=== PATIENT | male | born 1975 | race Caucasian/White ===

== ENCOUNTER 2017-09-26 12:37 | Emergency (ER) | payer BC ==
[2017-09-26] MEDS ORDERED: TOPICAL SKIN ADHESIVE 1 EACH AMP TOPICAL ONE (12:57)
[2017-09-26] MEDS ORDERED: DIPH,PERTUS(ACELL)TETVAC-LF 0.5 ML VIAL IM ONE (12:57)
--- NOTE | 2017-09-26 13:10 | ED ---
Wound/Laceration HPI - General Chief Complaint: Wound/Laceration Stated Complaint: Thumb Lac Time Seen by Provider: 09/26/17 12:52 Source: patient, RN notes reviewed Mode of arrival: ambulatory Limitations: no limitations - History of Present Illness Initial Comments: This is a 42-year-old male who presents to the emergency department with chief complaint of left thumb laceration. Patient states that 40 minutes prior to arrival he was hunting in [place]. He was skinning a deer when he slipped and lacerated his left thumb. Patient believes he is not up-to-date with his tetanus vaccination. He states the knife was clean at the time that the wound was made. States he is able to fully move his left thumb and has intact sensation. Denies fever, chills, chest pain, shortness of breath, abdominal pain , nausea or vomiting, constipation or diarrhea, dysuria or hematuria, numbness or tingling, headache or vision changes. - Related Data Allergies Allergy/AdvReac Type Severity Reaction Status Date / Time No Known Allergies Allergy Verified 09/26/17 13:26 Review of Systems ROS Statement: Those systems with pertinent positive or pertinent negative responses have been documented in the HPI. ROS Other: All systems not noted in ROS Statement are negative. General Exam - General Exam Comments Initial Comments: General: Awake and alert, well-developed; in no apparent distress. HEENT: Head atraumatic, normocephalic. Pupils are equal, round and reactive to light. Extraocular movements intact. Oropharynx moist without erythema or exudate. Neck: Supple. Normal ROM. Cardiovascular: Regular rate and rhythm. No murmurs, rubs or gallops. Chest symmetrical. Respiratory: Lungs clear to auscultation bilaterally. No wheezes, rales or rhonchi. Normal respiratory effort with no use of accessory muscles. Musculoskeletal: Full active and passive range of motion of left thumb. Sensation is intact. Radial pulses are 2+ equal and palpable bilaterally. Skin: [place], warm and dry without rashes. Approximately 1.0 cm superficial, linear laceration at distal tip of left thumb. Edges are well approximated. Bleeding is controlled. Neurological: Alert and oriented x3. CN II-XII grossly intact. Speech is fluent and answers are appropriate. No focal neuro deficits. Psychiatric: Normal mood and affect. No overt signs of depression or anxiety noted. Procedures - Laceration Laceration #1 Consent Obtained: verbal consent ( ) Indication: laceration Site: hand (distal tip left thumb ) Size (cm): 1 Description: linear Depth: simple, single layer Pre-repair: wound explored, irrigated extensively, deep structures intact Type of Sutures: other (Steri-strips (4) ) Patient Tolerated Procedure: well, no complications Medical Decision Making - Medical Decision Making this is a 42-year-old male who presents to the emergency department with chief complaint of left thumb laceration. Wound was cleansed and bleeding is controlled. 4 steristrips were applied and patient tolerated well without complication. Neurovascularly intact. Patient will be discharged home. Tetanus vaccination was made up-to-date while in the emergency department. Advised patient to allow Steri-Strips to fall off on their own within the next few days. He is in agreement and voices understanding. All questions were answered. Disposition Clinical Impression: Finger laceration Disposition: HOME SELF-CARE Condition: Good Instructions: Finger Laceration (ED) Additional Instructions: Please follow up with primary care provider within 1-2 days. Return to emergency department if symptoms should worsen or any concerns arise. Referrals: None,Stated [Primary Care Provider] - 1-2 days Time of Disposition: 13:29
[2017-09-26 13:38] VITALS: BP 136/79; PULSE 71; RESP 18; TEMP 97.1
== END 2017-09-26 13:42 | disposition home or self-care (01) ==
LOC: EC 12:37
DX: S61.012A Laceration without foreign body of left thumb without damage to nail, initial encounter (principal); Z23 Encounter for immunization; W26.0XXA Contact with knife, initial encounter; Y93.89 Activity, other specified
CPT/HCPCS: 90471; 90715; 99282

== ENCOUNTER 2023-09-13 12:52 | Emergency (ER) | payer BC ==
[2023-09-13] MEDS ORDERED: DIPH,PERTUS(ACELL)TETVAC-LF 0.5 ML VIAL IM ONE (13:05)
[2023-09-13 13:19] VITALS: RESP 18; TEMP 98.5
[2023-09-13 13:58] LABS: Basophils % (A) 0 %; Eosinophils # (A) 0.3 k/uL (0-0.7); Eosinophils % (A) 4 %; HCT 42.1 % (39.0-53.0); HGB 14.4 gm/dL (13.0-17.5); Lymphocytes # (A) 1.6 k/uL (1.0-4.8); Lymphocytes % (A) 23 %; MCH 33.2 pg (25.0-35.0); MCHC 34.2 g/dL (31.0-37.0); Mean Platelet Volume 8.9; Monocytes # (A) 0.4 k/uL (0-1.0); Monocytes % (A) 5 %; Neutrophils # (A) 4.5 k/uL (1.3-7.7); Neutrophils % (A) 65 %; Platelet Count 286 k/uL (150-450); RBC 4.34 m/uL (4.30-5.90); RDW 12.1 % (11.5-15.5); WBC 6.9 k/uL (3.8-10.6)
[2023-09-13 14:06] LABS: ALT 28 U/L (4-49); AST 29 U/L (17-59); African American GFR (CKD) >90 (>60 ml/min/1.73 sqM); Albumin 3.9 g/dL (3.5-5.0); Alkaline Phosphatase 65 U/L (38-126); Anion Gap 11 mmol/L; Blood Urea Nitrogen 16 mg/dL (9-20); Carbon Dioxide 21 mmol/L (22-30); Chloride 108 mmol/L (98-107); Creatine Kinase 198 U/L (55-170); Glucose 82 mg/dL (74-99); Non-African American GFR(CKD) >90 (>60 ml/min/1.73 sqM); Potassium 3.9 mmol/L (3.5-5.1); Sodium 140 mmol/L (137-145); Total Bilirubin 0.9 mg/dL (0.2-1.3); Total Protein 6.3 g/dL (6.3-8.2)
--- NOTE | 2023-09-13 14:09 | ED ---
Wound/Laceration HPI - General Chief Complaint: Wound/Laceration Stated Complaint: L Wrist Lac Time Seen by Provider: 09/13/23 12:52 Source: patient, RN notes reviewed Mode of arrival: ambulatory Limitations: no limitations - History of Present Illness Initial Comments: 40-year-old male was brought in by EMS because of a laceration to his left wrist area he was [place] and did lacerate with a puncture wound the lateral aspect of his left wrist he states the blood spurted out for several minutes he did hold pressure. EMS was summoned I did apply a dressing. Reports of some localized edema to the area other injury reported no fevers chills nausea vomiting sweats discomfort to the area and the feeling of swelling per the patient. His last tetanus shot was over 10 years ago. - Related Data Allergies Allergy/AdvReac Type Severity Reaction Status Date / Time No Known Allergies Allergy Verified 09/13/23 13:07 Review of Systems ROS Statement: Those systems with pertinent positive or pertinent negative responses have been documented in the HPI. ROS Other: All systems not noted in ROS Statement are negative. 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 Absent: scleral icterus, conjunctival injection, periorbital swelling ENT exam: Present: normal exam, mucous membranes moist Neck exam: Present: normal inspection. Absent: tenderness, meningismus, lymphadenopathy Respiratory exam: Present: normal lung sounds bilaterally. Absent: respiratory distress, wheezes, rales, rhonchi, stridor Cardiovascular Exam: Present: regular rate, normal rhythm, normal heart sounds. Absent: systolic murmur, diastolic murmur, rubs, gallop, clicks GI/Abdominal exam: Absent: distended, tenderness, guarding, rebound, rigid Extremities exam: Present: full ROM, tenderness (Examination of the left wrist demonstrates a proximally 3-4 mm linear laceration over the area of the radial artery. No active bleeding seen at this time there is local ice swelling but distally no evidence of any neurovascular deficits. The fingers and hand are pink warm and dry.), normal capillary refill. Absent: pedal edema, joint swelling, calf tenderness Back exam: Present: normal inspection Neurological exam: Present: alert, oriented X3, CN II-XII intact Psychiatric exam: Present: normal affect, normal mood Skin exam: Present: warm, dry, intact, normal color. Absent: rash Course Vital Signs 09/13/23 13:02 Temperature 98.5 F Pulse Rate 70 Respiratory 18 Rate Blood Pressure 128/85 O2 Sat by Pulse 99 Oximetry Medical Decision Making - Medical Decision Making I did discuss the findings with Dr. Starkey who did review the CT at this juncture no further workup is indicated. Patient did get tetanus. I did discuss the potential for infection.Was pt. sent in by a medical professional or institution (, PA, MENTAL HEALTH PROFESSIONAL, urgent care, hospital, or longterm...) When possible be specific @ -No Did you speak to anyone other than the patient for history (EMS, parent, family, police, friend...)? What history was obtained from this source @ -Paramedics upon arrival Did you review nursing and triage notes (agree or disagree)? Why? @ -I reviewed and agree with nursing and triage notes Were old charts reviewed (outside hosp., previous admission, EMS record, old EKG, old radiological studies, urgent care reports/EKG's, longterm records)? Report findings @ -No old charts were reviewed Differential Diagnosis (chest pain, altered mental status, abdominal pain women, abdominal pain men, vaginal bleeding, weakness, fever, dyspnea, syncope, headache, dizziness, GI bleed, back pain, seizure, CVA, palpatations, mental health, musculoskeletal)? @ -Puncture wound left wrist, radial artery injury EKG interpreted by me (3pts min.). @ -Done X-rays interpreted by me (1pt min.). @ -None done CT interpreted by me (1pt min.). @ -CT angiography the left upper extremity demonstrates no definitive evidence of arterial injury or extravasation no other findings. Was interpreted by me. U/S interpreted by me (1pt. min.). @ -None done What testing was considered but not performed or refused? (CT, X-rays, U/S, labs)? Why? @ -None What meds were considered but not given or refused? Why? @ -None Did you discuss the management of the patient with other professionals (professionals i.e. , PA, MENTAL HEALTH PROFESSIONAL, lab, RT, psych nurse, social sciences department chair, coffee break attendant, teacher, armored vehicle officer, geriatric case manager)? Give summary @ -After Starkey from vascular surgery no other treatment indicated at this time with respect to vascular surgery Was smoking cessation discussed for >3mins.? @ -No Was critical care preformed (if so, how long)? @ -No Were there social determinants of health that impacted care today? How? (Homelessness, low income, unemployed, alcoholism, drug addiction, transportation, low edu. Level, literacy, decrease access to med. care, senior living, rehab)? @ -No Was there de-escalation of care discussed even if they declined (Discuss DNR or withdrawal of care, Hospice)? DNR status @ -No What co-morbidities impacted this encounter? (DM, HTN, Smoking, COPD, CAD, Cancer, CVA, ARF, Chemo, Hep., AIDS, mental health diagnosis, sleep apnea, morbid obesity)? @ -None Was patient admitted / discharged? Hospital course, mention meds given and rout e, prescriptions, significant lab abnormalities, going to OR and other pertinent info. @ -hospital course and was discharged with outpatient follow-up we did discuss elevation and dressing for the next week. He did discuss potential for infectious process. This time no prophylaxis is indicated other than tetanus with the patient did receive. Undiagnosed new problem with uncertain prognosis? @ -No Drug Therapy requiring intensive monitoring for toxicity (Heparin, Nitro, Insulin, Cardizem)? @ -No Were any procedures done? @ -No Diagnosis/symptom? @ -Puncture wound left wrist. No repair indicated Acute, or Chronic, or Acute on Chronic? @ -Acute Uncomplicated (without systemic symptoms) or Complicated (systemic symptoms)? @ -Complicated Side effects of treatment? @ -No Exacerbation, Progression, or Severe Exacerbation? @ -No Poses a threat to life or bodily function? How? (Chest pain, [place], [place], pneumonia, PE, COPD, DKA, ARF, appy, cholecystitis, CVA, Diverticulitis, Homicidal, Suicidal, threat to staff... and all critical care pts) @ -No - Lab Data Result diagrams: 09/13/23 13:18 09/13/23 13:18 Lab Results 09/13/23 09/13/23 Range/Units 13:18 13:18 WBC 6.9 (3.8-10.6) k/uL RBC 4.34 (4.30-5.90) m/uL Hgb 14.4 (13.0-17.5) gm/dL Hct 42.1 (39.0-53.0) % MCV 97.0 (80.0-100.0) fL MCH 33.2 (25.0-35.0) pg MCHC 34.2 (31.0-37.0) g/dL RDW 12.1 (11.5-15.5) % Plt Count 286 (150-450) k/uL MPV 8.9 Neutrophils % 65 % Lymphocytes % 23 % Monocytes % 5 % Eosinophils % 4 % Basophils % 0 % Neutrophils # 4.5 (1.3-7.7) k/uL Lymphocytes # 1.6 (1.0-4.8) k/uL Monocytes # 0.4 (0-1.0) k/uL Eosinophils # 0.3 (0-0.7) k/uL Basophils # 0.0 (0-0.2) k/uL Sodium 140 (137-145) mmol/L Potassium 3.9 (3.5-5.1) mmol/L Chloride 108 H (98-107) mmol/L Carbon Dioxide 21 L (22-30) mmol/L Anion Gap 11 mmol/L BUN 16 (9-20) mg/dL Creatinine 0.78 (0.66-1.25) mg/dL Est GFR (CKD-EPI)AfAm >90 (>60 ml/min/1.73 sqM) Est GFR (CKD-EPI)NonAf >90 (>60 ml/min/1.73 sqM) Glucose 82 (74-99) mg/dL Calcium 9.0 (8.4-10.2) mg/dL Total Bilirubin 0.9 (0.2-1.3) mg/dL AST 29 (17-59) U/L ALT 28 (4-49) U/L Alkaline Phosphatase 65 (38-126) U/L Creatine Kinase 198 H (55-170) U/L Total Protein 6.3 (6.3-8.2) g/dL Albumin 3.9 (3.5-5.0) g/dL - Radiology Data Interpreted by me: Imaging cervical spine me CT angios shows no definitive evidence of arterial injury or extravasation at this time no other significant findings Disposition Clinical Impression: Puncture wound of left wrist, Laceration Disposition: HOME SELF-CARE Condition: Good Instructions (If sedation given, give patient instructions): Diphtheria/Tetanus Vaccine (By injection), Laceration (ED) Additional Instructions: Elevation when necessary clean dressing, antibiotic ointment to wound site. Follow-up with your doctor if needed and return if needed area no heavy lifting for one week with the left extremity Is patient prescribed a controlled substance at d/c from ED?: No Referrals: Nonstaff,Physician [Primary Care Provider] - 1-2 days Decision Date: 09/13/23 Decision Time: 15:13
--- NOTE | 2023-09-13 14:44 | CT ---
EXAMINATION TYPE: CT angio upper extremity LT CT DLP: 274.5 mGycm, Automated exposure control for dose reduction was used. DATE OF EXAM: 09/13/2023 1:55 PM COMPARISON: None CLINICAL INDICATION:Male, 48 years old with history of Trauma, Laceration to wrist while skinning [place] TECHNIQUE: Axial images were obtained of the CT angio upper extremity LT, Additional coronal and sagi ttal reformatted images and soft tissue and bone window were obtained for review. 3-D reconstruction was created on a separate workstation. MIP reformats were also created on a separate workstation. Contrast used:100 mL of Isovue 370 with IV Contrast, (None if empty) Oral contrast used: (None if empty) FINDINGS: Poor bolus timing limits evaluation. Visualized portions of the subclavian, axillary, trach eal arteries are patent. The proximal portions of the radial and ulnar artery appear patent. Evaluati on of the arterial vasculature extending from the mid forearm to the fingers is limited. The radial a rtery near the wrist appears patent there is small No evidence of fracture. No evidence for dislocati on. Left upper extremity soft tissue swelling visualized. The radial artery at the level of the wrists appears intact without evidence for vascular laceration or blush of contrast to suggest arterial extravasation. No hematoma definitively visualized. No radio paque foreign body. IMPRESSION: No evidence for arterial extravasation. Evaluation is limited due to bolus timing.
[2023-09-13 16:54] VITALS: BP 117/90; PULSE 60
== END 2023-09-13 16:35 | disposition home or self-care (01) ==
LOC: EC 12:52
DX: S61.532A Puncture wound without foreign body of left wrist, initial encounter (principal); Z23 Encounter for immunization; W21.32XA Struck by skate blades, initial encounter; Y93.51 Activity, roller skating (inline) and skateboarding
CPT/HCPCS: 36415; 80053; 82550; 85025; 73206; 90715; 99284; 90471; Q9967